=== PATIENT | female | born 1995 | race African-American/Black ===

== ENCOUNTER 2019-03-02 13:17 | Emergency (ER) | payer MEDICAID, OTHER ==
[~2019-03-02] VITALS: Ht 167.6 cm; Wt 60.0 kg
[2019-03-02] MEDS ORDERED: SODIUM CHLORIDE 0.9% 1,000 ML IV ONE (13:38)
[2019-03-02] MEDS ORDERED: KETOROLAC 30MG/ML VIAL IV STA (13:38)
[2019-03-02 13:51] LABS: CLARITY URINE CLEAR (CLEAR); COLOR URINE YELLOW (YELLOW); KETONES URINE NEGATIVE (NEGATIVE); LEUKOCYTE ESTERASE URINE TRACE (NEGATIVE); NITRITE URINE NEGATIVE (NEGATIVE); OCCULT BLOOD URINE NEGATIVE (NEGATIVE); PH URINE 7.5 (4.5-8.0); PROTEIN URINE NEGATIVE (NEGATIVE); SPECIFIC GRAVITY URINE 1.008 (1.005-1.030); UROBILINOGEN URINE 0.2 E.U./dL (0.2-1.0)
[2019-03-02 14:02] LABS: *AMPHETAMINES SCREEN URINE NEGATIVE (NEGATIVE); *BARBITURATES SCREEN URINE NEGATIVE (NEGATIVE); *BENZODIAZEPINES SCREEN URINE NEGATIVE (NEGATIVE); *COCAINE SCREEN URINE NEGATIVE (NEGATIVE)
[2019-03-02 14:03] LABS: CANNABINOID URINE SCREEN NEGATIVE (NEGATIVE); METHADONE URINE SCREEN NEGATIVE (NEGATIVE); OPIATES URINE SCREEN NEGATIVE (NEGATIVE); PHENCYCLIDINE URINE SCREEN NEGATIVE (NEGATIVE)
[2019-03-02 15:34] LABS: EOSINOPHILS % 2.4 % (0.0-5.0); HEMOGLOBIN. 12.5 g/dL (12.0-16.0); LYMPHOCYTES % 40.9 % (20.0-50.0); MEAN CORPUSCULAR HEMOGLOBIN 26.7 pg (28.0-32.0); MEAN CORPUSCULAR VOLUME 81.5 fL (81.0-99.0); MEAN PLATELET VOLUME 8.5 fl (7.4-10.4); MONOCYTES % 11.9 % (2.0-8.0); NEUTROPHILS % 43.8 % (40.0-76.0); PLATELET 245 x1000/uL (130-400); RED BLOOD CELL COUNT 4.67 mill/uL (4.2-5.4); RED CELL DISTRIBUTION WIDTH 14.3 % (11.6-14.6)
[2019-03-02 15:36] LABS: CHLORIDE 107 mEq/L (98-107)
[2019-03-02 15:40] LABS: INR 1.1; PROTHROMBIN TIME 11.3 sec (9.6-11.0)
[2019-03-02 17:52] VITALS: BP 111/70
== END 2019-03-02 17:55 | disposition home or self-care (01) ==
LOC: ER 13:17
DX: R10.2 Pelvic and perineal pain (principal); N83.209 Unspecified ovarian cyst, unspecified side; F41.9 Anxiety disorder, unspecified
CPT/HCPCS: 36415; 76830; 76856; 80053; 80305; 81003; 81025; 83690; 85025; 85610; 96374; 99284; J1885; J7030; Z7610

== ENCOUNTER 2019-05-29 01:34 | Emergency (ER) | payer MEDICAID ==
[~2019-05-29] VITALS: Ht 162.6 cm; Wt 63.0 kg
[2019-05-29 02:46] LABS: HEMATOCRIT. 36.7 % (36.0-48.0); HEMOGLOBIN. 12.7 g/dL (12.0-16.0); MEAN CORPUSCULAR HEMOGLOBIN 27.8 pg (28.0-32.0); MEAN CORPUSCULAR VOLUME 80.1 fL (81.0-99.0); MEAN PLATELET VOLUME 8.3 fl (7.4-10.4); PLATELET 199 x1000/uL (130-400); RED BLOOD CELL COUNT 4.58 mill/uL (4.2-5.4); RED CELL DISTRIBUTION WIDTH 13.6 % (11.6-14.6)
[2019-05-29 02:50] LABS: CHLORIDE 111 mEq/L (98-107)
[2019-05-29 02:54] LABS: ETHANOL BLOOD < 10 mg/dL
[2019-05-29 02:56] LABS: D-DIMER 0.72 mg/L FEU (<0.50); PARTIAL THROMBOPLASTIN TIME 28.3 sec (23.4-31.0); PROTHROMBIN TIME 10.9 sec (9.6-11.0)
[2019-05-29 03:43] LABS: CLARITY URINE CLEAR (CLEAR); COLOR URINE YELLOW (YELLOW); KETONES URINE NEGATIVE (NEGATIVE); LEUKOCYTE ESTERASE URINE 2+ (NEGATIVE); NITRITE URINE NEGATIVE (NEGATIVE); OCCULT BLOOD URINE TRACE (NEGATIVE); PH URINE 6.5 (4.5-8.0); PROTEIN URINE NEGATIVE (NEGATIVE); SPECIFIC GRAVITY URINE 1.024 (1.005-1.030); UROBILINOGEN URINE 0.2 E.U./dL (0.2-1.0)
[2019-05-29 04:17] LABS: PLATELET ESTIMATE NORMAL
[2019-05-29] MEDS ORDERED: LORAZEPAM 1MG TABLET PO ONE (05:00)
[2019-05-29 05:40] VITALS: BP 111/61
== END 2019-05-29 05:40 | disposition home or self-care (01) ==
LOC: ER 01:34
DX: F41.0 Panic disorder [episodic paroxysmal anxiety] (principal)
CPT/HCPCS: 36415; 71045; 80053; 80320; 81003; 83880; 84484; 85025; 85379; 87804; 93005; 99285; G0480